=== PATIENT | female | born 1995 | race American Indian/Alaskan Native ===

== ENCOUNTER 2017-01-10 11:42 | Inpatient (IN) | payer OTHER ==
[2017-01-10] MEDS ORDERED: ZOFRAN IV ONE (12:00)
[2017-01-10] MEDS ORDERED: NACL 0.9% 1000 ML 1,000 ML IV ONE (12:00)
[2017-01-10] MEDS ORDERED: DILAUDID IV ONE ×2 (12:00→13:45)
--- NOTE | 2017-01-10 12:29 | Emergency Department Report ---
ED Female HPI - General Stated complaint: ABD PAIN Time Seen by Provider: 01/10/17 11:58 Source: patient, police Limitations: No Limitations - History of Present Illness Initial comments: 21-year-old female with no significant past medical history presents to the hospital complaining probable miscarriage. Patient is with her first and she does not know how far long she has not had care or ultrasound. Patient was seen and evaluated at [facility] for nausea vomiting in "first trimester " based on LMP however, patient has continued to have menstrual cycles throughout this . Patient began to have significant cramping lower abdominal pain last night. She went to the bathroom frequently overnight. This morning she strained to have a bowel movement and the lower half of the torso of a baby came out of her vagina unattached to the upper half. Patient continues to have suprapubic cramping pain with rated at 9/10 in intensity, worse palpation. No alleviating factors. - Related Data Home Medications Medication Instructions Recorded Confirmed Last Taken Vitamin D (Nf) 1 tab PO QDAY 01/10/17 01/10/17 01/09/17 Allergies Allergy/AdvReac Type Severity Reaction Status Date / Time No Known Allergies Allergy Unverified 01/10/17 13:16 ED Review of Systems ROS: Stated complaint: ABD PAIN Other details as noted in HPI Comment: All other systems reviewed and negative Other: Constitutional: No fevers chills Eyes: No eye pain visual changes ENT: No ear pain or throat pain Neck: Denies pain Respiratory: Denies cough wheezing shortness of breath Cardiovascular: Denies chest pain, palpitations, syncope GI: as per hpi : as per hpi Musculoskeletal: Denies back pain Skin: Denies rash, lesions, erythema Neurologic: Denies headache, numbness, weakness Psychiatric: Denies suicidal ideation, hallucinations ED Past Medical Hx - Medications Home Medications: Home Medications Medication Instructions Recorded Confirmed Last Taken Type Vitamin D (Nf) 1 tab PO QDAY 01/10/17 01/10/17 01/09/17 History ED Physical Exam - Other Other exam information: General: No limitations, patient is alert in no acute distress Head exam: Atraumatic, normocephalic Eyes exam: Normal appearance ENT: Moist mucous membrane, normal oropharynx Neck exam: Normal inspection, full range of motion Respiratory exam: Clear to auscultation bilateral, no wheezes, rales, crackles Cardiovascular: Normal rate and rhythm, normal heart sounds Abdomen: Soft, nondistended, superpubic tenderness, with normal bowel sounds, no rebound, or guarding Extremity: Full range of motion normal inspection no deformity Back: Normal Inspection, full range of motion, no tenderness Neurologic: Alert, oriented x3, cranial nerves intact, no motor or sensory deficit Psychiatric: normal affect, normal mood Skin: Warm, dry, intact ED Course Vital Signs 01/10/17 01/10/17 12:00 13:58 Temperature 97.7 F Pulse Rate 91 H Respiratory 18 16 Rate Blood Pressure 97/57 O2 Sat by Pulse 100 100 Oximetry - Reevaluation(s) Reevaluation #1: 01/10/17 14:08 pt has just expelled the upper half of the baby with umbilical attached at this time. no significant bleeding - Consultations Consultation #1: 01/10/17 12:23 case d/w Dr Andrade, Rec US. 01/10/17 14:03 US report discussed, pt will be transfer to labor and delivery for treatment. Consultation #2: 01/10/17 14:08 ED Medical Decision Making - Lab Data Result diagrams: 01/10/17 12:17 01/10/17 12:17 Lab Results 01/10/17 01/10/17 01/10/17 Range/Units 12:17 12:17 12:17 WBC 10.9 (4.5-11.0) K/mm3 RBC 3.68 (3.65-5.03) M/mm3 Hgb 11.1 (10.1-14.3) gm/dl Hct 32.8 (30.3-42.9) % MCV 89 (79-97) fl MCH 30 (28-32) pg MCHC 34 (30-34) % RDW 14.3 (13.2-15.2) % Plt Count 185 (140-440) K/mm3 Lymph % (Auto) 16.8 (13.4-35.0) % Lawrence % (Auto) 5.7 (0.0-7.3) % Eos % (Auto) 0.4 (0.0-4.3) % Baso % (Auto) 0.5 (0.0-1.8) % Lymph # 1.8 (1.2-5.4) K/mm3 Lawrence # 0.6 (0.0-0.8) K/mm3 Eos # 0.0 (0.0-0.4) K/mm3 Baso # 0.1 (0.0-0.1) K/mm3 Seg Neutrophils % 76.6 H (40.0-70.0) % Seg Neutrophils # 8.3 H (1.8-7.7) K/mm3 Sodium 136 L (137-145) mmol/L Potassium 3.8 (3.6-5.0) mmol/L Chloride 102.6 (98-107) mmol/L Carbon Dioxide 20 L (22-30) mmol/L Anion Gap 17 mmol/L BUN 6 L (7-17) mg/dL Creatinine 0.4 L (0.7-1.2) mg/dL Estimated GFR > 60 ml/min BUN/Creatinine Ratio 15.00 % Glucose 89 (65-100) mg/dL Calcium 8.3 L (8.4-10.2) mg/dL HCG, Quant 97068 H (0-4) mIU/mL Blood Type Antibody Screen 01/10/17 Range/Units 12:17 WBC (4.5-11.0) K/mm3 RBC (3.65-5.03) M/mm3 Hgb (10.1-14.3) gm/dl Hct (30.3-42.9) % MCV (79-97) fl MCH (28-32) pg MCHC (30-34) % RDW (13.2-15.2) % Plt Count (140-440) K/mm3 Lymph % (Auto) (13.4-35.0) % Lawrence % (Auto) (0.0-7.3) % Eos % (Auto) (0.0-4.3) % Baso % (Auto) (0.0-1.8) % Lymph # (1.2-5.4) K/mm3 Lawrence # (0.0-0.8) K/mm3 Eos # (0.0-0.4) K/mm3 Baso # (0.0-0.1) K/mm3 Seg Neutrophils % (40.0-70.0) % Seg Neutrophils # (1.8-7.7) K/mm3 Sodium (137-145) mmol/L Potassium (3.6-5.0) mmol/L Chloride (98-107) mmol/L Carbon Dioxide (22-30) mmol/L Anion Gap mmol/L BUN (7-17) mg/dL Creatinine (0.7-1.2) mg/dL Estimated GFR ml/min BUN/Creatinine Ratio % Glucose (65-100) mg/dL Calcium (8.4-10.2) mg/dL HCG, Quant (0-4) mIU/mL Blood Type O POSITIVE Antibody Screen TNR - Radiology Data Radiology results: report reviewed (abdominal OB ultrasound: head and thorax in the cervix and possibly lower uterine segment. Size equivalent to 15 week 5 day versus 15 weeks 3 days. No heart motion.) - Medical Decision Making Patient treated with Dilaudid 0.5 mg 2, Zofran, and 1 L normal saline in the ED. patient is having an incomplete the placenta still attached in and expelled the upper half of the baby in the ED. vital signs stable. Patient be transferred to labor and delivery for definitive treatment by PIGMENT MIXER - Differential Diagnosis incomplete miscarriage, completed miscarriage Critical Care Time: No Critical care attestation.: If time is entered above; I have spent that time in minutes in the direct care of this critically ill patient, excluding procedure time. ED Disposition Clinical Impression: Incomplete Disposition: OP ADMITTED IP TO THIS HOSP Is pt being admited?: Yes Condition: Stable Time of Disposition: 14:02 (Deidre Reyes/corbin)
[2017-01-10 12:48] LABS: Basophils % (Auto) 0.5 % (0.0-1.8); Eosinophils % (Auto) 0.4 % (0.0-4.3); Hematocrit 32.8 % (30.3-42.9); Hemoglobin 11.1 gm/dl (10.1-14.3); Mean Corpuscular HGB Conc 34 % (30-34); Mean Corpuscular Hemoglobin 30 pg (28-32); Mean Corpuscular Volume 89 fl (79-97); Platelet Count 185 K/mm3 (140-440); Red Blood Count 3.68 M/mm3 (3.65-5.03); Red Cell Distribution Width 14.3 % (13.2-15.2); White Blood Count 10.9 K/mm3 (4.5-11.0)
[2017-01-10 12:50] LABS: Anion Gap 17 mmol/L; Blood Urea Nitrogen 6 mg/dL (7-17); Calcium 8.3 mg/dL (8.4-10.2); Carbon Dioxide 20 mmol/L (22-30); Chloride 102.6 mmol/L (98-107); Glucose 89 mg/dL (65-100); Potassium 3.8 mmol/L (3.6-5.0); Sodium 136 mmol/L (137-145)
--- NOTE | 2017-01-10 13:35 | Ultrasound Report ---
OB ultrasound: History: Incomplete delivery of her vagina. Fetus transected at pelvis. Exam for evaluation of retained parts. Transabdominal imaging demonstrates the head and thorax in the cervix and possibly lower uterine segment. The uterus is large consistent with and the endometrial thickness is 52 mm and inhomogeneous. No other parts identified cephalad to the cranium. The BPD measures 3.1 cm which would be equivalent to a 15 week 5 day gestation the abdominal circumference is 9.2 cm equivalent to a 15 week 3 day gestation. No heart motion. Impression: Incomplete .
--- NOTE | 2017-01-10 13:57 | Admit Criteria Form ---
Admission Criteria Documentation: OBSTETRIC AND GYNECOLOGIC DISEASE GRG Clinical Indications for Admission to Inpatient Care (Place 'X' for any and all applicable criteria): Hospital admission is needed for appropriate care of the patient because of 1 or more of the following (1)(2)(3): [ ]I. Hemodynamic instability, as indicated by 1 or more of the following (1)( 2)(3)(4)(5): [ ]a) Vital signs or other findings not as expected for chronic patient condition or baseline [ ]b) Instability indicated by 1 or more of the following: [ ]i) Hypotension [ ]ii) Symptomatic tachycardia unresponsive to treatment (eg, analgesia, fluids, sedation as indicated) [ ]iii) Inadequate perfusion indicated by 1 or more of the following: [ ]A. Lactic acidosis (greater than 2 mmol/ L) [ ]B. New abnormal capillary refill ( greater than 3 seconds) [ ]C. Reduced urine output [ ]D. New altered mental status [ ]iv) Orthostatic vital sign changes unresponsive to treatment (eg, fluids) [ ]v) Multiple IV fluid boluses required to maintain adequate blood pressure or perfusion [ ]vi) IV inotropic or vasopressor medication required to maintain adequate blood pressure or perfusion [ ]II. Obstetric infection requiring hospitalization indicated by 1 or more of the following(13)(14): [ ]a) Chorioamnionitis [ ]b) Endometritis (except mild endometritis) [ ]c) Pelvic abscess [ ]d) Peritonitis [ ]e) Septic pelvic thrombophlebitis [ ]III. Amniotic fluid or pulmonary embolism(4)(5)(6) [ ]IV. Suspected peritonitis or ectopic requiring monitoring beyond scope of 24 hours or observation care(7)(8) [ ]V. compromise requiring hospitalization indicated by ALL of the following(9)(10): [ ]a) compromise indicated by 1 or more of the following(11): [ ]i) Abnormal heart rate monitoring [ ]ii) Abnormal contraction stress test [ ]iii) Abnormal biophysical profile [ ]iv) Abnormal Doppler flow in vessels (ie, Doppler velocimetry) (12) [ ]b) Persistence of compromise indicators during evaluation and observation monitoring [ ]. Ovarian hyperstimulation syndrome requiring hospitalization[A] indicated by ALL of the following(15): [ ]a) Recent ovarian stimulation with gonadotropins, or evidence on ultrasound of spontaneous emergence of large number of ovarian follicles [ ]b) Evidence of severe ovarian hyperstimulation syndrome indicated by 1 or more of the following: [ ]i) Abdominal pain unresponsive to oral therapy [ ]ii) Acute respiratory distress syndrome [ ]iii) Electrolyte imbalance ( eg, hyponatremia, hyperkalemia) [ ]iv) Elevated liver enzymes [ ]v) Evidence of thromboembolism [ ]vi) Hemoconcentration (hematocrit greater than 45 % (0.45)) [ ]vii) Inability to maintain oral intake adequate to prevent hemoconcentration [ ]viii) Marked hypotension from baseline (eg, SBP 20 mmHg below patients usual pressure) [ ]ix) Oliguria or anuria [ ]x) Ovarian torsion [ ]xi) Pleural or pericardial effusion on x-ray or echocardiogram [ ]xii) Rapid increase in serum creatinine to greater than 1.2 mg/dL (106 micromoles/L) or creatinine clearance less than 50 mL/min/1.73m2 (0.84 mL/ sec/1.73m2) [ ]xiii) Ruptured ovarian cyst with hemorrhage [ ]xiv) Severe abdominal pain or peritoneal signs [ ]xv) Tense ascites that cannot be managed with paracentesis in outpatient setting [ ]VII.Pelvic infection requiring hospitalization indicated by 1 or more of the following (16): [ ]a) Outpatient treatment has failed or is not appropriate (eg, inpatient monitoring required) [ ]b) Pelvic abscess [ ]c) Surgical emergency cannot be excluded (eg, rigid abdomen) [ ]d) Vomiting precluding outpatient and observation care management [X]VIII. loss complications requiring inpatient medical treatment indicated by 1 or more of the following (4)(7)(9): [ ]a) Fever [ ]b) Peritonitis [ ]c) Sepsis [X ]d) Severe abdominal pain [ ]IX. or patient requiring monitoring for severe heart failure, pulmonary disease, or other comorbid condition (eg, peripartum cardiomyopathy) (4)(17) [ ]X. patient with rupture of membranes requiring hospitalization indicated by ANY ONE of the following: [ ]a) Chorioamnionitis, cloudy amniotic fluid, or other evidence of infection [ ]b) compromise or other need for monitoring (11) [ ]c) Gestation longer than 23 weeks and ANY ONE of the following: [ ]i) Abnormal (noncephalic) presentation [ ]ii) Inadequate home environment (eg, home too far from hospital, unable to rapidly return to hospital) [ ]d) Temperature greater than 100.4 degrees F (38 degrees C)( oral) [ ]e) Threatened labor requiring monitoring beyond scope (eg, over 24 hours) of observation Care [ ] XI. complications, including severe lacerations, infections, or retained placenta (19) [ ] XII.Uterine bleeding with high-risk features indicated by ANY ONE of the following (4): [ ]a) Active major hemorrhage (eg, hemorrhage) [ ]b) Coagulopathy with active bleeding [ ]c) Gestational trophoblastic disease (eg, molar ) (20 ) [ ]d) (longer than 23 weeks) and ANY ONE of the following: [ ]i) Pain [ ]ii) Placental abruption, known or suspected [ ]iii) Placenta accrete, known or suspected(21) [ ]iv) Placenta previa, known or suspected [ ]v) Vasa previa [ ]e) Severe anemia [ ]XIII. Obstetric or Gynecologic Disease, condition or symptom for which ANY ONE of the following: [ ]a) Emergency and observation care have failed or are not considered appropriate ( Also use General Criteria: Observation Care Criteria as appropriate) [ ]b) Presence of a General Admission Criteria or Pediatric General Admission Criteria The original [facility] We content created by [facility] has been revised. The portions of the content which have been revised are identified through the use of italic text or in bold, and [facility] has neither reviewed nor approved the modified material.All other unmodified content is copyright [facility]. Please see references footnoted in the original [facility] edition 2016 Admission Criteria Met: Yes
[2017-01-10] MEDS ORDERED: CYTOTEC ONE (14:32)
[2017-01-10] MEDS ORDERED: LACTATED RINGERS 1,000 ML ONE (14:32)
[2017-01-10] MEDS ORDERED: CYTOTEC VG ONE ×2 (14:44→14:48)
[2017-01-10] MEDS ORDERED: SUBLIMAZE IV ONE (14:45)
[2017-01-10] MEDS ORDERED: LACTATED RINGERS 1,000 ML IV SCH (15:00)
[2017-01-10] MEDS ORDERED: PITOCin/NS 20 UNIT/1000ML DRIP 20,000 MILLIUNITS/1,000 ML BAG IV ONE (15:47)
[2017-01-10] MEDS ORDERED: PHENERGAN PO PRN (16:16)
[2017-01-10] MEDS ORDERED: DULCOLAX PR PRN (16:16)
[2017-01-10] MEDS ORDERED: TYLENOL PO PRN (16:16)
[2017-01-10] MEDS ORDERED: PHENERGAN PR PRN (16:16)
[2017-01-10] MEDS ORDERED: NORCO 5/325 PO PRN (16:16)
[2017-01-10] MEDS ORDERED: TUCKS PAD TP PRN (16:16)
[2017-01-10] MEDS ORDERED: DERMOPLAST TP PRN (16:16)
[2017-01-10] MEDS ORDERED: ZOFRAN IV PRN (16:16)
[2017-01-10] MEDS ORDERED: LANSINOH TP PRN (16:16)
[2017-01-10] MEDS ORDERED: BENADRYL PO PRN (16:16)
[2017-01-10] MEDS ORDERED: MILK OF MAGNESIA PO PRN (16:16)
--- NOTE | 2017-01-10 16:36 | History and Physical Report ---
History of Present Illness Date of examination: 01/10/17 Date of admission: 01/10/17 14:44 Chief complaint: "baby in my vagina" History of present illness: Pt is a 21 year olfd -[place] female primigravida with unknown LMP ( October 25, 2016) at 11w0d by LMP who presents from the Emergency Department with incomplete . The patient reports that she first became aware of the last month when she went to the [facility] (pt unsure which location) because of migraine headaches and nausea. She reports that she never stopped bleeding, that her last normal menstrual period was in October but she has been bleeding sporadically since then. She reports she was in her usual state of health until last night when she began to have sharp abdominal pain and bleeding while she wipes. She tried to "sleep off" the pain. She then woke up this morning and felt the urge to have a bowel movement. When looked down she saw feet protruding through the vagina. She said the object would not come out so she wrapped it in a towel and pulled on it. Once she pulled, the lower half of the fetus from the umbilicus down came out of the vagina. She and her mother called an ambulance that brought her to the Emergency Department. Right when the patient was being transferred to the labor and delivery, the head arms and upper torso were delivered. While the storeperson physician was en- route, the placenta delivered as well. She had not yet sought care secondary to insurance reasons. Past History Past Medical History: no pertinent history Past Surgical History: no surgical history Family/Genetic History: none Social history: no significant social history - Obstetrical History Expected Date of Delivery: 08/01/17 Actual Gestation: 11 Week(s) 0 Day(s) : 1 Medications and Allergies Allergies Allergy/AdvReac Type Severity Reaction Status Date / Time No Known Allergies Allergy Unverified 01/10/17 13:16 Home Medications Medication Instructions Recorded Confirmed Last Taken Type Vitamin D (Nf) 1 tab PO QDAY 01/10/17 01/10/17 01/09/17 History Active Meds: Active Medications Lactated Ringer's (Lactated Ringers) 1,000 mls @ 125 mls/hr IV DIRECT POLO Review of Systems All systems: negative - Vital Signs Vital signs: Vital Signs Temp Pulse Resp BP Pulse Ox 97.7 F 91 H 18 97/57 100 01/10/17 12:00 01/10/17 12:00 01/10/17 12:00 01/10/17 12:00 01/10/17 12:00 Temp Pulse Resp BP Pulse Ox 97.9 F 71 18 93/55 100 01/10/17 15:14 01/10/17 16:02 01/10/17 15:14 01/10/17 16:02 01/10/17 13:58 - Physical Exam Breasts: Positive: deferred Cardiovascular: Regular rate Lungs: Positive: Clear to auscultation Abdomen: Positive: soft Genitourinary (Female): Positive: normal external genitalia Uterus: Positive: enlarged (gravid ) Extremities: Positive: normal Results Result Diagrams: 01/10/17 12:17 01/10/17 12:17 All other labs normal. Assessment and Plan A: Complete at 15 wks P: Admit for observation to Mother Baby. Consider discharge tomorrow AM if stable.
[2017-01-10] MEDS ORDERED: SODIUM CHLORIDE FLUSH SYRINGE 10 ML IV SCH (17:00)
[2017-01-10] MEDS ORDERED: PITOCin/NS 20 UNIT/1000ML DRIP 20 UNITS/1,000 ML BAG IV SCH (17:00)
--- NOTE | 2017-01-10 17:00 | Procedure Note ---
OB Delivery Note - Delivery Date of Delivery: 01/10/17 Surgeon: ADDIE CHAPMAN Estimated blood loss: <100cc - Vaginal Delivery presentation: breech Delivery monitor: none Route of delivery: Delivery placenta: spontaneous Episiotomy: none Delivery laceration: none Anesthesia: none Delivery comments: While physician injection operator en route, pt delivered the upper half of the fetus and the placenta. Upon entry to room, bleeding scant. - Infant A at 1 minute: 0 at 5 minutes: 0 Infant Gender: Male (175g (6 oz))
[2017-01-10] MEDS: MOTRIN PO SCH (18:30)
[2017-01-11 05:59] LABS: Hematocrit 27.9 % (30.3-42.9); Hemoglobin 9.3 gm/dl (10.1-14.3)
--- NOTE | 2017-01-11 10:53 | Progress Note ---
Assessment and Plan - Patient Problems (1) Incomplete Current Visit: Yes Status: Acute Plan to address problem: Patient doing well clinically Discharge home Subjective - Subjective Date of service: 01/11/17 Interval history: Patient is without complaints. She currently denies any significant pain or vaginal bleeding Patient reports: appetite normal, voiding normally, pain well controlled Ward: Objective - Vital Signs Latest vital signs: Vital Signs Temp Pulse Resp BP 01/11/17 08:04 99.2 F 80 18 82/51 01/11/17 06:25 98.3 F 76 16 90/60 01/11/17 00:00 98.3 F 84 16 88/52 01/10/17 20:00 98.4 F 73 18 96/54 Intake and Output 01/10/17 01/11/17 01/11/17 22:59 06:59 14:59 Intake Total 240 100 480 Output Total 300 300 Balance -60 100 180 Intake: Oral 480 Intake, Free Water 240 100 Output: Urine 300 300 Void 300 300 Other: Total, Intake Amount 480 Total, Output Amount 300 300 - Labs Labs: Abnormal lab results 01/11/17 Range/Units 05:26 Hgb 9.3 L (10.1-14.3) gm/dl Hct 27.9 L (30.3-42.9) %
--- NOTE | 2017-01-11 10:55 | Discharge Summary ---
Providers - Providers Date of Admission: 01/10/17 18:31 Date of discharge: 01/11/17 Attending physician: ADDIE CHAPMAN Primary care physician: FEATURE WRITER Hospitalization Reason for admission: labor, other Delivery: Other procedures: none complications: none Discharge diagnosis: delivery Hospital course: Patient presented to the emergency department with a second trimester delivery of a nonviable . course was uncomplicated. The patient was discharged home once she met discharge criteria. Condition at discharge: Good Disposition: DISCHARGED TO HOME OR SELFCARE - Discharge Diagnoses (1) Incomplete Status: Acute Plan - Discharge Medications Prescriptions: HYDROcodone/APAP 5-325 [Rolla 5/325] 1 each PO Q6HR PRN #30 tablet PRN Reason: Pain Ibuprofen [Motrin] 800 mg PO Q8HR PRN #60 tablet PRN Reason: Pain - Provider Discharge Summary Activity: no sex for 6 weeks, no heavy lifting 4 weeks, no strenuous exercise Diet: routine Instructions: routine Additional instructions: [] Smoking cessation referral if applicable(refer to patient education folder for contact #) [] Refer to [facility] Booklet Call your doctor immediately for: * Fever > 100.5 * Heavy vaginal bleeding ( >1 pad per hour) * Severe persistent headache * Shortness of breath * Reddened, hot, painful area to leg or breast * Drainage or odor from incision. * Keep incision clean and dry at all times and follow doctor's instructions regarding bathing/showering Follow-up in 4 weeks - Follow up plan
[2017-01-11] MEDS: MOTRIN PO SCH (11:42)
[2017-01-11 12:01] VITALS: BP 84/47
[2017-01-12] MEDS ORDERED: FLUARIX QUAD 2016-2017(36 MOS+) IM ONE (12:00)
== END 2017-01-11 17:20 | disposition home or self-care (01) | DRG 770 ==
LOC: ED 11:42 → LD 14:44 → UNDOADMIN 14:44 → LD 14:54 → OB 14:54 → LD 14:57 → OB 14:57 → LD 18:11 → OB 18:31
PROVIDERS: ADMIT Obstetrics & Gynecology; ATTEND Obstetrics & Gynecology
PROC: 10D17ZZ Extraction of Products of Conception, Retained, Via Natural or Artificial Opening (ICD-10-PCS; principal; 2017-01-10)
DX: O03.4 Incomplete spontaneous abortion without complication (principal); Z3A.11 11 weeks gestation of pregnancy
CPT/HCPCS: 36415; 76805; 80048; 84702; 85014; 85018; 85025; 86850; 86900; 86901; 88305; 96361; 96374; 96375; 96376; J1170; J2405; J2590; J7030; J7120